=== PATIENT | female | born 1990 | race African-American/Black ===

== ENCOUNTER → 2020-12-09 | Outpatient (CLI) | payer OTHER | END | disposition home or self-care (01) | LOC: LABWHC1 14:26 | PROVIDERS: ATTEND Obstetrics & Gynecology | DX: O20.0 Threatened abortion (principal); Z3A.00 Weeks of gestation of pregnancy not specified | CPT/HCPCS: 36415; 84702 ==

== ENCOUNTER → 2020-12-14 | Outpatient (CLI) | payer OTHER ==
--- NOTE | 2020-12-14 15:34 | US ---
EXAMINATION TYPE: Ultrasound OB <= 14 week transvaginal DATE OF EXAM: 12/14/2020 9:09 AM COMPARISON: NONE CLINICAL HISTORY: 30-year-old female Z36 CNFIRM DATES. EXAM PERFORMED: Transvaginal (TV) and Transabdominal (TA) FINDINGS: Date of LMP: 09/08/2020 EXAM MEASUREMENTS: GESTATIONAL AGE / DATING Physician Established: Not established EDC: Not established Dates by LMP: (13 weeks/6 days) EDC: 06/15/21 Dates by First Scan: Prior scan week ago performed at [facility] not available for review. EDC: No prior Dates by Current Scan for: (6 weeks/5 days) EDC: 08/04/21 MATERNAL ANATOMY Uterus: 14.8 x 7.5 x 5.4 cm Right Ovary: 2.8 x 2.1 x 1.8 cm Left Ovary: 2.2 x 2.4 x 2.2 cm Post CDS / Adnexa: wnl Presence of free fluid: no Presence of corpus luteal cyst: no Presence of subchorionic bleed: no GESTATION / SURVEY CRL: No pole seen ( MSD: 1.8 cm (6 weeks/5 days). There is an elongated configuration. Yolk Sac (normal less than 6mm): Not seen Heart Rate: Not seen IUP: No IUP seen at this time. A small 1.2 cm focus of perigestational hemorrhage is present along the left lateral aspect. Empty 6+ week gestational sac. IMPRESSION: Probable gestational sac measuring 1.8 cm without yolk sac or pole. Small 1.2 cm perigestational bleed. At this gestational sac size, a yolk sac should be visualized. Additional follow-up can be performed to differentiate blighted ovum versus early intrauterine . MTDD
== END | disposition home or self-care (01) ==
LOC: RADUSWWP 09:07
PROVIDERS: ATTEND Obstetrics & Gynecology
DX: O20.8 Other hemorrhage in early pregnancy (principal); Z3A.01 Less than 8 weeks gestation of pregnancy
CPT/HCPCS: 36415; 76801; 76802; 76817; 84702

== ENCOUNTER 2020-12-17 18:39 | Emergency (ER) | payer OTHER ==
[2020-12-17 19:03] VITALS: TEMP 98.3
[2020-12-17] MEDS: SODIUM CHLORIDE 0.9% 1,000 ML IV ONE (19:47)
--- NOTE | 2020-12-17 19:57 | ED ---
General Adult HPI - General Chief complaint: Vaginal Bleeding Stated complaint: 14 wks preg, bleeding Time Seen by Provider: 12/17/20 19:23 Source: patient Mode of arrival: wheelchair Limitations: no limitations - History of Present Illness Initial comments: 30 year-old female patient , one missed , one ectopic, current approximately 14 week presents to the emergency department for evaluation of heavy vaginal bleeding. States that she started having light bleeding yesterday and went to [facility]. States she had u ltrasound showing 14 week . She has been following with Dr. Reyes with this , states she has had mixed reports of how far long she is and abnormal heart rates on ultrasound. States her last period was 09/08/20. Denies any other bleeding with this . States she is having lower abdominal cramping low back cramping. States she is changing her pad every 10 minutes and passing large blood clots. Denies dizziness or weakness. Denies any hematuria, dysuria, urinary frequency, urinary urgency. Patient denies any recent rash, fever, chills, cough, shortness of breath, chest pain, nausea, vomiting, diarrhea, constipation, numbness, tingling, dizziness, weakness, headache, visual changes, or any other complaints. - Related Data Home Medications Medication Instructions Recorded Confirmed No Known Home Medications 12/17/20 12/17/20 Allergies Allergy/AdvReac Type Severity Reaction Status Date / Time No Known Allergies Allergy Verified 12/17/20 20:53 Review of Systems ROS Statement: Those systems with pertinent positive or pertinent negative responses have been documented in the HPI. ROS Other: All systems not noted in ROS Statement are negative. Past Medical History Past Medical History: No Reported History Additional Past Medical History / Comment(s): History of Any Multi-Drug Resistant Organisms: None Reported Additional Past Surgical History / Comment(s): D&C aned pt had ectopic in 2008. Past Anesthesia/Blood Transfusion Reactions: No Reported Reaction Past Psychological History: No Psychological Hx Reported Past Alcohol Use History: None Reported Past Drug Use History: None Reported - Past Family History Mother Family Medical History: Hypertension General Exam Limitations: no limitations General appearance: alert, in no apparent distress, other (This is a well- developed, well-nourished adult female patient in no acute distress. Vital signs upon presentation are temperature 98.3F, pulse 93, respirations 18, blood pressure 129/92, pulse ox 99% on room air.) Eye exam: Present: normal appearance, PERRL, EOMI. Absent: scleral icterus, conjunctival injection, periorbital swelling ENT exam: Present: normal exam, normal oropharynx, mucous membranes moist Respiratory exam: Present: normal lung sounds bilaterally. Absent: respiratory distress, wheezes, rales, rhonchi, stridor Cardiovascular Exam: Present: regular rate, normal rhythm, normal heart sounds. Absent: systolic murmur, diastolic murmur, rubs, gallop, clicks GI/Abdominal exam: Present: soft, normal bowel sounds. Absent: distended, tenderness, guarding, rebound, rigid External exam: Present: normal external exam Speculum exam: Present: vaginal bleeding (dark red, medium sized blood clots. ), tissue (Mass that appears to be tissue is removed from the vaginal vault. Mild bleeding at this time. ) Neurological exam: Present: alert, oriented X3, CN II-XII intact Psychiatric exam: Present: normal affect, normal mood Skin exam: Present: warm, dry, intact, normal color. Absent: rash Course Vital Signs 12/17/20 18:59 Temperature 98.3 F Pulse Rate 93 Respiratory 18 Rate Blood Pressure 129/92 O2 Sat by Pulse 99 Oximetry Medical Decision Making - Medical Decision Making 30-year-old female patient presented for evaluation of heavy vaginal bleeding abdominal pain and cramping. She is approximately 14 weeks , A2. Physical examination did reveal some mild suprapubic tenderness. Did perform pelvic examination there was multiple blood clots in the vaginal vault, there was evidence for tissue possibly fetus passed during the exam. Labs reviewed and did reveal hgb 12.2. hCG 30088.6. Blood type O+. Ultrasound was obtained and showed an empty uterus. Patient was evaluated at [facility] yesterday, review of records shows intrauterine fetus measuring 14 weeks without heart activity. hCG was 13,286. This confirms that tissue seen was most likely . This was sent to the laboratory for gross examination and evaluation. Did discuss findings and results with the patient. She will be discharged to follow up with Dr. Reyes as soon as possible. Return parameters are discussed in detail. She verbalizes understanding and agrees with this plan. My attending is Dr. Loya. - Lab Data Result diagrams: 12/17/20 19:45 12/17/20 19:45 Lab Results 12/17/20 12/17/20 12/17/20 Range/Units 19:45 19:45 19:45 WBC 12.3 H (3.8-10.6) k/uL RBC 4.75 (3.80-5.40) m/uL Hgb 12.2 (11.4-16.0) gm/dL Hct 37.2 (34.0-46.0) % MCV 78.3 L (80.0-100.0) fL MCH 25.7 (25.0-35.0) pg MCHC 32.8 (31.0-37.0) g/dL RDW 15.1 (11.5-15.5) % Plt Count 357 (150-450) k/uL MPV 6.9 Neutrophils % 71 % Lymphocytes % 21 % Monocytes % 4 % Eosinophils % 3 % Basophils % 0 % Neutrophils # 8.8 H (1.3-7.7) k/uL Lymphocytes # 2.6 (1.0-4.8) k/uL Monocytes # 0.4 (0-1.0) k/uL Eosinophils # 0.3 (0-0.7) k/uL Basophils # 0.1 (0-0.2) k/uL Sodium 137 (137-145) mmol/L Potassium 4.3 (3.5-5.1) mmol/L Chloride 103 (98-107) mmol/L Carbon Dioxide 26 (22-30) mmol/L Anion Gap 8 mmol/L BUN 9 (7-17) mg/dL Creatinine 0.62 (0.52-1.04) mg/dL Est GFR (CKD-EPI)AfAm >90 (>60 ml/min/1.73 sqM) Est GFR (CKD-EPI)NonAf >90 (>60 ml/min/1.73 sqM) Glucose 91 (74-99) mg/dL Calcium 9.5 (8.4-10.2) mg/dL Total Bilirubin 0.3 (0.2-1.3) mg/dL AST 22 (14-36) U/L ALT 12 (4-34) U/L Alkaline Phosphatase 91 (38-126) U/L Total Protein 6.9 (6.3-8.2) g/dL Albumin 3.8 (3.5-5.0) g/dL HCG, Quant 95603.6 mIU/mL Urine Color Yellow Urine Appearance Clear (Clear) Urine pH 5.5 (5.0-8.0) Ur Specific [place] 1.026 (1.001-1.035) Urine Protein Negative (Negative) Urine Glucose (UA) Negative (Negative) Urine Ketones Negative (Negative) Urine Blood Large H (Negative) Urine Nitrite Negative (Negative) Urine Bilirubin Negative (Negative) Urine Urobilinogen <2.0 (<2.0) mg/dL Ur Leukocyte Esterase Negative (Negative) Urine RBC >182 H (0-5) /hpf Ur Squamous Epith Cells <1 (0-4) /hpf Urine Mucus Rare H (None) /hpf Blood Type Blood Type Recheck Bld Type Recheck Status 12/17/20 Range/Units 19:52 WBC (3.8-10.6) k/uL RBC (3.80-5.40) m/uL Hgb (11.4-16.0) gm/dL Hct (34.0-46.0) % MCV (80.0-100.0) fL MCH (25.0-35.0) pg MCHC (31.0-37.0) g/dL RDW (11.5-15.5) % Plt Count (150-450) k/uL MPV Neutrophils % % Lymphocytes % % Monocytes % % Eosinophils % % Basophils % % Neutrophils # (1.3-7.7) k/uL Lymphocytes # (1.0-4.8) k/uL Monocytes # (0-1.0) k/uL Eosinophils # (0-0.7) k/uL Basophils # (0-0.2) k/uL Sodium (137-145) mmol/L Potassium (3.5-5.1) mmol/L Chloride (98-107) mmol/L Carbon Dioxide (22-30) mmol/L Anion Gap mmol/L BUN (7-17) mg/dL Creatinine (0.52-1.04) mg/dL Est GFR (CKD-EPI)AfAm (>60 ml/min/1.73 sqM) Est GFR (CKD-EPI)NonAf (>60 ml/min/1.73 sqM) Glucose (74-99) mg/dL Calcium (8.4-10.2) mg/dL Total Bilirubin (0.2-1.3) mg/dL AST (14-36) U/L ALT (4-34) U/L Alkaline Phosphatase (38-126) U/L Total Protein (6.3-8.2) g/dL Albumin (3.5-5.0) g/dL HCG, Quant mIU/mL Urine Color Urine Appearance (Clear) Urine pH (5.0-8.0) Ur Specific [place] (1.001-1.035) Urine Protein (Negative) Urine Glucose (UA) (Negative) Urine Ketones (Negative) Urine Blood (Negative) Urine Nitrite (Negative) Urine Bilirubin (Negative) Urine Urobilinogen (<2.0) mg/dL Ur Leukocyte Esterase (Negative) Urine RBC (0-5) /hpf Ur Squamous Epith Cells (0-4) /hpf Urine Mucus (None) /hpf Blood Type O Positive Blood Type Recheck O Pos Bld Type Recheck Status No - Radiology Data Radiology results: report reviewed, image reviewed Ultrasound of the pelvis is obtained. Impression by Dr. Garcia shows empty uterus. No adnexal mass or free fluid. Disposition Clinical Impression: Miscarriage Disposition: HOME SELF-CARE Condition: Good Instructions (If sedation given, give patient instructions): Miscarriage (ED) Additional Instructions: Follow up with Dr. Reyes for evaluation as soon as possible. Return to the emergency department for any new, worsening, or concerning symptoms. Is patient prescribed a controlled substance at d/c from ED?: No Referrals: Michele Alva MD [Primary Care Provider] - 1-2 days Zach Reyes DO [Doctor of Osteopathic Medicine] - 1-2 days Time of Disposition: 21:06
[2020-12-17 20:17] LABS: Basophils # (A) 0.1 k/uL (0-0.2); Basophils % (A) 0 %; Eosinophils # (A) 0.3 k/uL (0-0.7); Eosinophils % (A) 3 %; HCT 37.2 % (34.0-46.0); HGB 12.2 gm/dL (11.4-16.0); Lymphocytes # (A) 2.6 k/uL (1.0-4.8); Lymphocytes % (A) 21 %; MCH 25.7 pg (25.0-35.0); MCHC 32.8 g/dL (31.0-37.0); MCV 78.3 fL (80.0-100.0); Mean Platelet Volume 6.9; Monocytes # (A) 0.4 k/uL (0-1.0); Monocytes % (A) 4 %; Neutrophils # (A) 8.8 k/uL (1.3-7.7); Neutrophils % (A) 71 %; Platelet Count 357 k/uL (150-450); RBC 4.75 m/uL (3.80-5.40); RDW 15.1 % (11.5-15.5); WBC 12.3 k/uL (3.8-10.6)
[2020-12-17 20:27] LABS: Appearance,Urine Clear (Clear); Bilirubin,Urine Negative (Negative); Color,Urine Yellow; Glucose,Urine (UA) Negative (Negative); Ketones,Urine Negative (Negative); PH, Urine 5.5 (5.0-8.0); Protein,Urine Negative (Negative); Specific Gravity,Urine 1.026 (1.001-1.035)
[2020-12-17 20:28] LABS: ALT 12 U/L (4-34); AST 22 U/L (14-36); African American GFR (CKD) >90 (>60 ml/min/1.73 sqM); Albumin 3.8 g/dL (3.5-5.0); Alkaline Phosphatase 91 U/L (38-126); Anion Gap 8 mmol/L; Blood Urea Nitrogen 9 mg/dL (7-17); Blood,Urine Large (Negative); Calcium 9.5 mg/dL (8.4-10.2); Carbon Dioxide 26 mmol/L (22-30); Chloride 103 mmol/L (98-107); Glucose 91 mg/dL (74-99); Leukocyte Esterase,Urine Negative (Negative); Mucus,Urine Rare /hpf; Nitrite,Urine Negative (Negative); Non-African American GFR(CKD) >90 (>60 ml/min/1.73 sqM); Potassium 4.3 mmol/L (3.5-5.1); RBC,Urine >182 /hpf (0-5); Sodium 137 mmol/L (137-145); Squamous Epithelial Cell,Urine <1 /hpf (0-4); Total Bilirubin 0.3 mg/dL (0.2-1.3); Total Protein 6.9 g/dL (6.3-8.2); Urobilinogen,Urine <2.0 mg/dL (<2.0)
[2020-12-17 20:43] LABS: HCG,Quantitative Serum 10796.6 mIU/mL
[2020-12-17] MEDS: ACETAMINOPHEN TAB 500 MG TAB PO STA (20:43)
--- NOTE | 2020-12-17 20:44 | US ---
EXAMINATION TYPE: Transabdominal DATE OF EXAM: 12/17/2020 8:33 PM COMPARISON: CLINICAL HISTORY: Heavy vaginal bleeding. Bleeding. hx ectopic. patient was unable to tolerate pressure of transabdominal exam- limited images taken. EXAM PERFORMED: Transvaginal (TV) and Transabdominal (TA) EXAM MEASUREMENTS: GESTATIONAL AGE / DATING Physician Established: Not yet established Dates by LMP: (14 weeks/2 days) EDC: 06/15/2021 Dates by First Scan: (7 weeks/1 days) EDC: 08/04/2021 Dates by Current Scan for: No IUP seen at this time MATERNAL ANATOMY Uterus: 12.6 x 6.8 x 6.0 cm Right Ovary: Not visualized Left Ovary: Not visualized Post CDS / Adnexa: no Presence of free fluid: no Presence of corpus luteal cyst: no Presence of subchorionic bleed: no GESTATION / SURVEY IUP: No IUP seen at this time Date of LMP: 09/08/2020, Beta HcG (if available): 12/14/2020- 04605.1. Not available yet for today. No GS, YS or CRL visualized on today's exam. IMPRESSION: Empty uterus. No adnexal mass or free fluid.
[2020-12-17] MEDS: ACET/COD 300 MG/30 MG STARTER PACK 6 TAB BTL PO STA (21:40)
[2020-12-17 21:45] VITALS: BP 117/69; PULSE 78; RESP 16
== END 2020-12-17 21:45 | disposition home or self-care (01) ==
LOC: EC 18:39
DX: O02.1 Missed abortion (principal); Z3A.14 14 weeks gestation of pregnancy
CPT/HCPCS: 36415; 76801; 76817; 80053; 81001; 84702; 85025; 86900; 86901; 99284

== ENCOUNTER → 2021-01-03 | Outpatient (CLI) | payer OTHER | END | disposition home or self-care (01) | LOC: LABWHC1 11:52 | PROVIDERS: ATTEND Obstetrics & Gynecology | DX: O02.1 Missed abortion (principal); Z3A.00 Weeks of gestation of pregnancy not specified | CPT/HCPCS: 36415; 84702 ==

== ENCOUNTER 2022-08-01 08:46 | Emergency (ER) | payer OTHER ==
[2022-08-01 08:55] VITALS: BP 123/89; PULSE 68; RESP 20; TEMP 98.4
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
== END 2022-08-01 10:04 | disposition home or self-care (01) ==
LOC: EC 08:46
DX: R42 Dizziness and giddiness (principal); V49.40XA Driver injured in collision with unspecified motor vehicles in traffic accident, initial encounter
CPT/HCPCS: 99283